=== PATIENT | female | born 1950 | race Caucasian/White ===

== ENCOUNTER 2022-04-07 14:15 | Outpatient (CLI) | payer MEDICARE, OTHER | END 2022-04-07 14:16 | disposition home or self-care (01) | LOC: CSHMAMMO 14:15 | PROVIDERS: ATTEND Family Medicine | DX: Z12.31 Encounter for screening mammogram for malignant neoplasm of breast (principal); M81.0 Age-related osteoporosis without current pathological fracture; M85.852 Other specified disorders of bone density and structure, left thigh | CPT/HCPCS: 77063; 77067; 77080 ==

== ENCOUNTER 2023-05-15 12:08 | Outpatient (CLI) | payer MEDICARE, OTHER | END 2023-05-15 12:09 | disposition home or self-care (01) | LOC: CSHMAMMO 12:08 | PROVIDERS: ATTEND Family Medicine | DX: Z12.31 Encounter for screening mammogram for malignant neoplasm of breast (principal) | CPT/HCPCS: 77063; 77067 ==

== ENCOUNTER 2023-08-31 10:07 | Outpatient (CLI) | payer MEDICARE, OTHER | END 2023-08-31 10:08 | disposition home or self-care (01) | LOC: CSHMAMMO 10:07 | PROVIDERS: ATTEND Family Medicine | DX: Z13.820 Encounter for screening for osteoporosis (principal) | CPT/HCPCS: 77080 ==

== ENCOUNTER 2025-09-03 13:51 | Emergency (ER) | payer MEDICARE, OTHER ==
[2025-09-03] MEDS ORDERED: Amoxicillin/Potassium Clav 875 MG TAB ONE (14:28)
== END 2025-09-03 14:37 | disposition home or self-care (01) ==
LOC: CSHERS 13:51
DX: H10.9 Unspecified conjunctivitis (principal); J32.0 Chronic maxillary sinusitis
CPT/HCPCS: 99283